=== PATIENT | male | born 1965 | race Caucasian/White ===

== ENCOUNTER 2019-11-05 09:01 | Day surgery (SDC) | payer BC ==
[~2019-11-05 09:01] MED LIST: Lactated Ringers 1,000 ML IV SCH; Sodium Chloride 0.9% 10 ML Syringe FLUSH PRN
[2019-11-05] MEDS ORDERED: Ketamine 200 MG/20 ML MDV IV ONE (09:02)
[2019-11-05] MEDS ORDERED: Midazolam 1 MG/ML 2 ML SDV IV ONE (09:02)
[2019-11-05] MEDS ORDERED: Propofol 200 MG/20 ML SDV IV ONE (09:02)
[2019-11-05] MEDS ORDERED: EPINEPHrine 1:10,000 1 MG/10 ML Syringe ONE (09:33)
[2019-11-05] MEDS ORDERED: Midazolam 1 MG/ML 2 ML SDV ONE (10:15)
[2019-11-05] MEDS ORDERED: Propofol 200 MG/20 ML SDV ONE (10:15)
[2019-11-05] MEDS ORDERED: Ketamine 200 MG/20 ML MDV ONE (10:15)
--- NOTE | 2019-11-05 11:37 | PCM.OPNOTE ---
- General Post-Op/Procedure Note Date of Surgery/Procedure: 11/05/19 Operative Procedure(s): Upper Gi Endoscopy and biopsies. Anesthesia Technique: Moderate Sedation Primary Surgeon: Nixon Cruz Complications: None Condition: Good Free Text/Narrative:: INFORMED CONSENT: Patient is here today for elective upper GI endoscopy. All aspects of this procedure have been discussed with the patient. All possible complications also, including possibility of perforation, infection, pain, bleeding, numbness of the throat, swallowing difficulty and unknown complications. In the event of perforation the patient may need surgical exploration to repair the defect. The patient understands fully well. Patient did not have any further questions for me at the end of my interview. The patient wishes for me to proceed. INSTRUMENT USED: : OlympusVideo gastroscope ANESTHESIA: [MAc] ASA CLASSIFICATION: [2] PROCEDURE PERFORMED: [upper gastrointestinal endoscopy and biopsies from the gastroesophageal junction.] PHARYNX: Normal. ESOPHAGUS: Normal. Proximal: Normal. Middle: Normal. Lower: Normal. GE Junction: Normal except for small inflamed hiatal hernia STOMACH: Normal. Cardia: Normal. Fundus: Normal. Lesser Curvature: Normal. Greater Curvature: Normal. Antrum: Normal. Pylorus: Normal. DUODENUM: Normal. First Part: Normal. Second Part: Normal. Third Part: Normal. RETROFLEXION: Normal. BIOPSY: Taken from the hiatal hernia. TOLERANCE: Excellent. COMPLICATIONS: None. '
--- NOTE | 2019-11-05 15:03 | OR ---
DATE OF SURGERY: 11/05/2019 SURGEON: Nixon Cruz MD PREOPERATIVE DIAGNOSIS: Persistent epigastric and upper abdominal discomfort, previous history of Samy fundoplication many years ago. POSTOPERATIVE DIAGNOSIS: Small hiatal hernia with minimal inflammation. Otherwise, negative upper GI endoscopy. OPERATION PERFORMED: Upper GI endoscopy with biopsies. DESCRIPTION OF PROCEDURE: Informed consent was obtained with the patient regarding this procedure. All possible complications were thoroughly discussed with the patient. He understands and wishes to proceed. IV sedation was given and monitored. Anesthesia was performed by the roll coating machine operator. Continuous EKG, respiratory , oximetry and blood pressure monitoring were performed throughout the procedure. The patient was kept in supine position. His mouth was anesthetized with Xylocaine viscous. An Olympus video gastroscope was introduced through the throat and advanced all the way into the stomach. We examined the esophagus very carefully. GE junction was carefully examined. There was a moderate-sized hiatal hernia with minimal inflammation. No ulcers. No varicose veins. The scope was introduced into the stomach. The cardiac portion of the stomach was clear. The lesser curvature and greater curvatures were both normal. Antrum was normal. Pyloric opening was normal. The scope was passed through the pyloric opening into the first, second, and third parts of the duodenum all of which appeared to be normal without any abnormalities. The scope was withdrawn back into the stomach. Retroflexion technique was again used. No additional findings were discovered. The air was aspirated. The scope was withdrawn into the area of the hiatal hernia and biopsies were taken to rule out the possibility of Bojorquez esophagitis, as this patient has had this condition previously. The scope was totally withdrawn. The patient tolerated the procedure well without any complication. /[id number]/MODL MTDD
== END 2019-11-05 12:50 | disposition home or self-care (01) ==
LOC: KA.SDS 09:01
PROVIDERS: ATTEND Family Medicine
DX: K44.9 Diaphragmatic hernia without obstruction or gangrene (principal); I10 Essential (primary) hypertension; E78.00 Pure hypercholesterolemia, unspecified; K21.9 Gastro-esophageal reflux disease without esophagitis; F32.9 Major depressive disorder, single episode, unspecified; F41.9 Anxiety disorder, unspecified; L40.9 Psoriasis, unspecified; F17.210 Nicotine dependence, cigarettes, uncomplicated; Z79.82 Long term (current) use of aspirin; Z79.899 Other long term (current) drug therapy; Z98.890 Other specified postprocedural states; Z91.041 Radiographic dye allergy status; Z88.2 Allergy status to sulfonamides
CPT/HCPCS: J2250; J2704; J7120

== ENCOUNTER 2023-11-13 15:32 | Emergency (ER) | payer BC ==
[2023-11-13 16:19] LABS: BASOPHILS ABSOLUTE AUTO 0.03 10^3/uL (0.00-0.10); BASOPHILS PERCENT AUTO 0.4 % (0.0-1.0); EOSINOPHILS ABSOLUTE AUTO 0.11 10^3/uL (0.10-0.30); EOSINOPHILS PERCENT AUTO 1.6 % (1.0-3.0); HEMATOCRIT 45.1 % (40.0-52.0); HEMOGLOBIN 14.6 g/dL (13.0-17.0); IMMATURE GRAN ABSOLUTE AUTO 0.02 10^3/uL (0.00-0.50); IMMATURE GRAN PERCENT AUTO 0.3 % (0.0-5.0); LYMPHOCYTES ABSOLUTE AUTO 0.53 10^3/uL (1.00-4.00); LYMPHOCYTES PERCENT AUTO 7.7 % (20.0-40.0); MEAN CORPUSCULAR HEMOGLOBIN 30.9 pg (27.0-31.0); MEAN CORPUSCULAR HGB CONC 32.4 g/dL (32.0-36.0); MEAN CORPUSCULAR VOLUME 95.6 fL (82.0-92.0); MEAN PLATELET VOLUME 9.4 fL (7.4-10.4); MONOCYTES ABSOLUTE AUTO 0.89 10^3/uL (0.10-0.80); MONOCYTES PERCENT AUTO 12.9 % (2.0-8.0); NEUTROPHILS ABSOLUTE AUTO 5.33 10^3/uL (2.50-7.00); NEUTROPHILS PERCENT AUTO 77.1 % (50.0-70.0); PLATELET COUNT,PLT 146 10^3/uL (150-400); RED BLOOD CELL COUNT 4.72 10^6/uL (4.50-6.00); RED CELL DISTRIBUTION WIDTH 12.7 % (11.5-14.5); WHITE BLOOD CELL COUNT,WBC 6.91 10^3/uL (5.00-10.00)
[2023-11-13] MEDS ORDERED: Albuterol/Ipratropium 3.0-0.5 MG/3 ML Neb Soln NEB ONE ×2 (16:33→18:22)
[2023-11-13 16:35] LABS: ALBUMIN 3.06 g/dL (3.40-5.00); ANION GAP 12.6 mmol/L (5-15); CALCIUM 8.5 mg/dL (8.7-10.3); CARBON DIOXIDE,CO2 28.5 mmol/L (21.0-32.0); CREATININE 1.09 mg/dL (0.51-1.17); EST CRCL DRUG DOSING (CG) 77.72 mL/min; POTASSIUM,K 4.1 mmol/L (3.5-5.1); PROTEIN TOTAL,TP 7.1 g/dL (6.4-8.2)
[2023-11-13 17:00] LABS: INFLUENZA A NAA NEGATIVE (NEGATIVE); INFLUENZA B NAA NEGATIVE (NEGATIVE); RESPIRATORY SYNCYTIAL VIR NAA NEGATIVE (NEGATIVE)
[2023-11-13 17:02] LABS: CORONAVIRUS COVID-19 NAA NEGATIVE (NEGATIVE)
[2023-11-13] MEDS ORDERED: methylPREDNISolone Sodium Succinate 125 MG/2 ML SDV IM ONE (18:19)
[2023-11-13] MEDS ORDERED: Cefdinir 300 MG Cap PO ONE (18:21)
== END 2023-11-13 18:50 | disposition home or self-care (01) ==
LOC: KA.ED 15:32
DX: J98.11 Atelectasis (principal); F17.210 Nicotine dependence, cigarettes, uncomplicated; R05.2 Subacute cough; R06.02 Shortness of breath; E78.00 Pure hypercholesterolemia, unspecified; I10 Essential (primary) hypertension; M19.90 Unspecified osteoarthritis, unspecified site; E66.9 Obesity, unspecified; Z20.822 Contact with and (suspected) exposure to COVID-19; Z91.041 Radiographic dye allergy status; Z88.2 Allergy status to sulfonamides; Z79.82 Long term (current) use of aspirin; Z79.899 Other long term (current) drug therapy
CPT/HCPCS: 0241U; 36415; 71046; 71250; 80053; 83605; 85025; 87040; 94640; 96372; 99284; A9270-GY; J2930; J7620-GY

== ENCOUNTER 2024-02-23 11:43 | Emergency (ER) | payer BC ==
[2024-02-23] MEDS: Bacitracin Oint 30 GM Tube TOP SCH (12:23)
[2024-02-23 12:37] VITALS: BP 145/78; PULSE 80
== END 2024-02-23 12:30 | disposition home or self-care (01) ==
LOC: KA.ED 11:43
DX: T25.221A Burn of second degree of right foot, initial encounter (principal); T25.232A Burn of second degree of left toe(s) (nail), initial encounter; I10 Essential (primary) hypertension; E78.00 Pure hypercholesterolemia, unspecified; M19.90 Unspecified osteoarthritis, unspecified site; E66.9 Obesity, unspecified; Z79.82 Long term (current) use of aspirin; Z79.899 Other long term (current) drug therapy; Z88.2 Allergy status to sulfonamides; Z91.041 Radiographic dye allergy status; X12.XXXA Contact with other hot fluids, initial encounter
CPT/HCPCS: 99283

== ENCOUNTER 2025-11-04 08:36 | Day surgery (SDC) | payer OTHER ==
[~2025-11-04 08:36] MED LIST changes: -Lactated Ringers 1,000 ML IV SCH
[2025-11-04] MEDS ORDERED: Propofol 200 MG/20 ML SDV IV ONE (08:37)
[2025-11-04] MEDS ORDERED: Midazolam 1 MG/ML 2 ML SDV ONE (08:47)
[2025-11-04] MEDS ORDERED: Propofol 200 MG/20 ML SDV ONE ×2 (08:47→09:56)
[2025-11-04] MEDS: Lactated Ringers 1,000 ML IV SCH (09:09)
== END 2025-11-04 11:51 | disposition home or self-care (01) ==
LOC: KA.SDS 08:36
PROVIDERS: ATTEND Family Medicine
DX: D12.0 Benign neoplasm of cecum (principal); K63.5 Polyp of colon; K64.8 Other hemorrhoids; Z88.5 Allergy status to narcotic agent; Z88.8 Allergy status to other drugs, medicaments and biological substances; Z79.899 Other long term (current) drug therapy
CPT/HCPCS: 00813; 88305; J1596; J2250; J2704; J7120